=== PATIENT | female | born 1985 | race Caucasian/White ===

== ENCOUNTER 2021-02-03 22:31 | Emergency (ER) | payer BC, OTHER ==
[~2021-02-03] VITALS: Ht 162.6 cm; Wt 81.6 kg
[2021-02-04] MEDS ORDERED: IOHEXOL 300 MG/ML 100ML BOTTLE IJ ONE (00:21)
[2021-02-04 02:00] VITALS: BP 126/63
[2021-02-04] MEDS ORDERED: ONDANSETRON HCL 4 MG/2 ML VIAL IV ONE (03:15)
[2021-02-04] MEDS ORDERED: LORazepam 2MG/ML-1ML VIAL IV ONE (03:15)
[2021-02-04] MEDS ORDERED: KETOROLAC TROMETH 30 MG/ML 1ML VIAL IV ONE (03:15)
== END 2021-02-04 03:42 | disposition home or self-care (01) ==
LOC: EDBD 22:31 → ER 22:36
DX: S20.211A Contusion of right front wall of thorax, initial encounter (principal); S10.83XA Contusion of other specified part of neck, initial encounter; R51.9 Headache, unspecified; V49.59XA Passenger injured in collision with other motor vehicles in traffic accident, initial encounter; Y93.89 Activity, other specified; Y92.488 Other paved roadways as the place of occurrence of the external cause; Y99.8 Other external cause status
CPT/HCPCS: 70450; 71260; 72125; 73552; 74177; 96374; 96375; 99285; J1885; J2060; J2405; Q9967